=== PATIENT | male | born 1960 | race Caucasian/White ===

== ENCOUNTER 2017-10-15 08:36 | Day surgery (SDC) | payer BC ==
[~2017-10-15] VITALS: Ht 188 cm; Wt 95.7 kg
[~2017-10-15 08:36] MED LIST: SODIUM CHLORIDE 0.9% 1000ML 1,000 ML IV ONE
[2017-10-15 09:17] VITALS: BP 133/82
[2017-10-15] MEDS ORDERED: PROPOFOL 10 MG/ML 20ML VIAL IV ONE ×2 (10:39→10:40)
[2017-10-15 10:49] VITALS: BP 107/67
== END 2017-10-15 11:15 ==
LOC: DAH 08:36
PROVIDERS: ATTEND Internal Medicine Gastroenterology
DX: Z09 Encounter for follow-up examination after completed treatment for conditions other than malignant neoplasm (principal); K27.9 Peptic ulcer, site unspecified, unspecified as acute or chronic, without hemorrhage or perforation; Z86.010 Personal history of colon polyps
CPT/HCPCS: 45378; A4606; J2704 ×2; J7030